=== PATIENT | male | born 1975 | race Caucasian/White ===

== ENCOUNTER 2022-04-11 09:47 | Outpatient (CLI) | payer BC, SELFPAY ==
--- NOTE | 2022-04-11 09:00 | DI.RAD_ITS ---
Exam(s) XR WRIST RT LIMITED EXAM: XR WRIST RT LIMITED CLINICAL HISTORY: R wrist fx. TECHNIQUE: 2D digital imaging was performed. COMPARISON: CR XR WRIST 3 VIEW RIGHT from 04/02/2022 FINDINGS: Two views: AP and lateral in splint views reveal the previously described distal radius fracture. Fracture line is again noted to violate the radiocarpal joint space but there is no displacement evident. No sign ificant ulnar variance. No fracture of the ulnar styloid. Scaphoid and scapholunate distance are no rmal. On the lateral view there is a small round osteophytic density off the dorsal aspect of the ca rpal row bones. This is probably an accessory ossicle. IMPRESSION: Nondisplaced fracture of the distal radius, as described above. DATA REPOSITORY: RADIATION DOSE DELIVERED:
== END 2022-04-11 09:48 | disposition home or self-care (01) ==
LOC: DIORS 09:47
PROVIDERS: PCP Family Medicine; Referring Provider Family Medicine; Visit Provider Physician Assistant
DX: S52.591A Other fractures of lower end of right radius, initial encounter for closed fracture; X58.XXXA Exposure to other specified factors, initial encounter
CPT/HCPCS: 73100

== ENCOUNTER 2022-04-20 14:57 | Outpatient (CLI) | payer BC, SELFPAY ==
--- NOTE | 2022-04-20 13:45 | DI.RAD_ITS ---
Exam(s) XR WRIST RT LIMITED EXAM: XR WRIST RT LIMITED INDICATION: follow up fx. COMPARISON: CR XR WRIST RT LIMITED from 04/11/2022 TECHNIQUE: 2D digital imaging was performed. Two views. FINDINGS: There has been no change in the alignment of the distal radial fracture which shows some increased he aling compared the prior exam. DATA REPOSITORY: RADIATION DOSE DELIVERED:
== END 2022-04-20 14:58 | disposition home or self-care (01) ==
LOC: DIORS 14:57
PROVIDERS: PCP Family Medicine; Referring Provider Family Medicine; Visit Provider Physician Assistant
DX: S52.501D Unspecified fracture of the lower end of right radius, subsequent encounter for closed fracture with routine healing (principal); X58.XXXD Exposure to other specified factors, subsequent encounter
CPT/HCPCS: 73100

== ENCOUNTER 2022-05-18 10:27 | Outpatient (CLI) | payer BC, SELFPAY ==
--- NOTE | 2022-05-18 09:00 | DI.RAD_ITS ---
Exam(s) XR WRIST RT LIMITED EXAM: XR WRIST RT LIMITED CLINICAL HISTORY: F/U R DISTAL RADIUS FX. TECHNIQUE: 2D digital imaging was performed of the right wrist. Two views were obtained. PA and la teral views were obtained. COMPARISON: CR XR WRIST RT LIMITED from 04/20/2022 FINDINGS: BONES: There has been continued healing of the distal radial fracture. No change in alignment of the fracture is seen. No new fractures identified. No bony destructive lesion is seen. JOINTS: The carpal bones are normally aligned. SOFT TISSUE: Normal. IMPRESSION: Stable healing distal right radial fracture. DATA REPOSITORY: RADIATION DOSE DELIVERED:
== END 2022-05-18 10:28 | disposition home or self-care (01) ==
LOC: DIORS 10:28
PROVIDERS: PCP Family Medicine; Referring Provider Family Medicine; Visit Provider Student in an Organized Health Care Education/Training Program
DX: S52.591D Other fractures of lower end of right radius, subsequent encounter for closed fracture with routine healing (principal); W19.XXXD Unspecified fall, subsequent encounter
CPT/HCPCS: 73100